=== PATIENT | male | born 1975 | race Caucasian/White ===

== ENCOUNTER 2017-04-20 17:33 | Emergency (ER) | payer OTHER ==
[~2017-04-20] VITALS: Ht 175.3 cm; Wt 91.6 kg
[2017-04-20 17:39] VITALS: BP 144/93
--- NOTE | 2017-04-20 18:08 | PHYS DOC ---
Past Medical History Past Medical History: High Cholesterol, Other Additional Past Medical Histor: CHRONIC NECK PAIN Past Surgical History: Other Additional Past Surgical Histo: C4,C5,C6 FUSION,ELBOW,EYE,VASECTOMY & REVERSAL Additional Information: 0.5 PPD Alcohol Use: Occasionally Drug Use: None Adult General Chief Complaint Chief Complaint: Neck Pain HPI HPI Patient is a 42 year old male with history of high cholesterol and chronic neck pain who presents today complaining of chronic left lateral neck pain radiating to the left upper extremity that has been going on for 2 months. Patient denies any new trauma. He states he got injured in 2008 in the and had and cervical spine fusion of C4, C5 and C6 with plates at [facility]. Patient states he follows up with his doctor. He states his doctor is not doing anything for his pain. He states he was originally put on ultram which made him "sick". He states his doctor changed him to Tizanidine. He states his doctor lied to him that the will not approve his CT of the cervical spine. He states he called the insurance today and they told him they were waiting for pear to pear review with the doctor to approve the CT of the cervical spine. He states he informed the insurance he is coming to the ED to be evaluated. He is requesting a CT of the cervical spine. He states he has an appointment with the spine clinic in May and pain clinic at the end of the month. Patient denies any chest pain or shortness of breath. Review of Systems Review of Systems Constitutional: Denies fever or chills [] Eyes: Denies change in visual acuity, redness, or eye pain [] HENT: Denies nasal congestion or sore throat [] Respiratory: Denies cough or shortness of breath [] Cardiovascular: No additional information not addressed in HPI [] GI: Denies abdominal pain, nausea, vomiting, bloody stools or diarrhea [] : Denies dysuria or hematuria [] Musculoskeletal: Neck pain Integument: Denies rash or skin lesions [] Neurologic: Denies headache, focal weakness or sensory changes [] Endocrine: Denies polyuria or polydipsia [] Allergies Allergies Allergies Coded Allergies Type Severity Reaction Last Updated Verified No Known Drug Allergies 04/20/17 No Physical Exam Physical Exam Constitutional: Well developed, well nourished, no acute distress, non-toxic appearance. [] HENT: Normocephalic, atraumatic, bilateral external ears normal, oropharynx moist, no oral exudates, nose normal. [] Eyes: PERRLA, EOMI, conjunctiva normal, no discharge. [] Neck: Normal range of motion, paraspinal muscle tenderness to the left cervical spine, slight midline cervical spine tenderness, supple, no stridor. [] Cardiovascular:Heart rate regular rhythm, no murmur [] Lungs & Thorax: Bilateral breath sounds clear to auscultation [] Abdomen: Bowel sounds normal, soft, no tenderness, no masses, no pulsatile masses. [] Skin: Warm, dry, no erythema, no rash. [] Back: No tenderness, no CVA tenderness. [] Extremities: No tenderness, no cyanosis, no clubbing, ROM intact, no edema. [] Neurologic: Alert and oriented X 3, normal motor function, normal sensory function, no focal deficits noted. [] Psychologic: Affect normal, judgement normal, mood normal. [] Current Patient Data Vital Signs Vital Signs Date Time Temp Pulse Resp B/P (MAP) Pulse Ox O2 Delivery O2 Flow Rate FiO2 04/20/17 17:39 98.2 77 16 144/93 (110) 96 Room Air 98.2 EKG EKG [] Radiology/Procedures Radiology/Procedures []PROCEDURE: CT CERVICAL SPINE WO CONTRAST Indication: Chronic neck pain and prior neck fusion. Axial imaging through the cervical spine was performed without contrast. Sagittal and coronal reformations were also performed. One or more of the following individualized dose reduction techniques were utilized for this examination: 1. Automated exposure control 2. Adjustment of the mA and/or kV according to patient size 3. Use of iterative reconstruction technique No prior studies are available for comparison. Curvature and alignment of the cervical spine is normal. There are postoperative changes of ACDF with anterior plate and screws extending from C5 through C7. The hardware is intact. No fracture or loosening is seen. Bony structures are intact. There is mild degenerative disc disease at multiple levels with disc space narrowing and marginal spurring. The odontoid is intact. The bony canal is intact. IMPRESSION: C5-C7 ACDF. No complicating features are detected. Electronically signed by: Kevyn Perry MD (04/20/2017 6:27 PM) [facility] DICTATED and SIGNED BY: KEVYN PERRY MD DATE: 04/20/17 1821 CC: RAMAKRISHNA FIGUEROA MD; VON GONZALEZ APRN; NON,STAFF ~ Course & Med Decision Making Course & Med Decision Making Pertinent Labs and Imaging studies reviewed. (See chart for details) Please see history of present illness. Patient is in the ED with complaints of chronic back pain. He is requesting CT of the cervical spine. No known injury. CT of the cervical spine interpreted by radiologist was negative for any acute findings. Results were provided to patient and he was instructed to follow-up with his own PCP, spine center, the pain clinic. Dragon Disclaimer Dragon Disclaimer This electronic medical record was generated, in whole or in part, using a voice recognition dictation system. Departure Departure Impression: Primary Impression: Chronic neck pain Additional Impression: Cervical radiculopathy Disposition: HOME, SELF-CARE Condition: STABLE Referrals: RAMAKRISHNA FIGUEROA MD (PCP) Please follow-up with your own primary care doctor, spine center, and the pain clinic as soon as possible. Patient Instructions: Cervical Radiculopathy Additional Instructions: You were seen for chronic neck pain. Please follow-up with the spine center, pain clinic, and your primary care doctor. Scripts Diclofenac Sodium (DICLOFENAC SODIUM) 50 Mg Tablet.dr 1 TAB PO BID, #30 TAB 1 Refill Prov: VON GONZALEZ APRN 04/20/17 Problem Qualifiers VON GONZALEZ APRN Apr 20, 2017 18:08
--- NOTE | 2017-04-20 18:30 | RAD ---
Indication: Chronic neck pain and prior neck fusion. Axial imaging through the cervical spine was performed without contrast. Sagittal and coronal reformations were also performed. One or more of the following individualized dose reduction techniques were utilized for this examination: 1. Automated exposure control 2. Adjustment of the mA and/or kV according to patient size 3. Use of iterative reconstruction technique No prior studies are available for comparison. Curvature and alignment of the cervical spine is normal. There are postoperative changes of ACDF with anterior plate and screws extending from C5 through C7. The hardware is intact. No fracture or loosening is seen. Bony structures are intact. There is mild degenerative disc disease at multiple levels with disc space narrowing and marginal spurring. The odontoid is intact. The bony canal is intact. IMPRESSION: C5-C7 ACDF. No complicating features are detected. Electronically signed by: Kevyn Perry MD (04/20/2017 6:27 PM) [facility]
[2017-04-20] MEDS ORDERED: DICL50TA4 PO (19:24)
== END 2017-04-20 19:26 | disposition home or self-care (01) ==
LOC: ER 17:33
DX: G89.29 Other chronic pain (principal); M54.12 Radiculopathy, cervical region; E78.00 Pure hypercholesterolemia, unspecified; F17.200 Nicotine dependence, unspecified, uncomplicated; Z98.1 Arthrodesis status
CPT/HCPCS: 72125; 99284-25